=== PATIENT | female | born 1995 | race Caucasian/White ===

== ENCOUNTER → 2022-02-12 12:48 | Outpatient (CLI) | payer OTHER, SELFPAY ==
[2022-02-12 13:26] LABS: COVID19 -Nasal RAPID Negative (Negative)
== END ==
PROVIDERS: PCP Family Medicine Sports Medicine; Referring Provider Podiatrist; Visit Provider Podiatrist
DX: Z20.822 Contact with and (suspected) exposure to COVID-19 (principal)
CPT/HCPCS: 87635; C9803

== ENCOUNTER 2022-02-14 09:46 | Day surgery (SDC) | payer OTHER, SELFPAY ==
[2022-02-13 07:23] VITALS: BMI 45.1
[2022-02-14] VITALS (9 sets, daily range): BP systolic 114–136; BP diastolic 68–78; PULSE 76–94; RESP 12–18; TEMP 36.6–37.5; O2SAT 94–99; BMI 45.1
--- NOTE | 2022-02-14 11:00 | PM.PREOP ---
Pre-operative Note COVID-19 COVID-19 status: Negative Result date/Date tested (Pos, Neg/Pending): 02/12/22 Interval Note History & Physical reviewed/Exam performed by Physician: Yes Changes to H&P: No
[2022-02-14] MEDS: CEFAZOLIN 2 GM/100 ML PREMIX 100 ML IV (11:15)
--- NOTE | 2022-02-14 11:39 | SUR.OPER ---
Supine on padded OR bed, head on pillow, arms secured on padded arm boards at <90 degrees abduction, legs uncrossed, safety belt at thigh, tape over blanket over lower right leg
[2022-02-14] MEDS: BUPIVACAINE 0.5% W/ EPI (PF) 30 ML VIAL INJ (11:44)
--- NOTE | 2022-02-14 15:17 | PM.OP.1 ---
Operative Date/Time/Diagnoses Date of procedure: 02/14/22 Time of procedure: 12:00 Pre-op diagnosis: Left foot hallux abductovalgus with bunion Post-op diagnosis: same Procedure & Clinicians Procedure: Left bunionectomy with distal metatarsal osteotomy and hallux phalangeal osteotomy Same procedure as scheduled: Yes Indications: 26-year-old female with painful bunion on the left foot. Conservative measures have failed to alleviate her pain and she wished to have surgical intervention at this time. Spoke with the risks, potential complications, alternatives, and expected outcomes. Consent was signed, no contraindications to the procedure at this time. Surgeon: Zandra Foley Click Yes if Unassisted: Yes Anesthesia Type: General Operative Notes Closure Type: primary Specimen(s): none sent Prosthetic devices, grafts, tissues, transplants, or devices: [place] 2.0 cannulated screws (2), and JAWS Nitinol alex (2) Estimated Blood Loss (mL): 30 Blood products transfused: none Tourniquet time (min): 79 Procedure in detail: The patient was brought to the operating room and placed on the operating table in the supine position. Tourniquet was placed about the left thigh. Well padded, appropriately aligned. After induction of general anesthesia the left foot and ankle were prepped and draped in the usual aseptic manner. The tourniquet was inflated to 250 mmHg. Incision was made over the 1st metatarsophalangeal joint. The incision was deepened through subcutaneous tissues being careful to identify and retract all vital neurovascular structures. All bleeders were cauterized and ligated as necessary. A medial capsulotomy was performed to the 1st MTPJ exposing the enlarged medial eminence. Through the same incision on the lateral aspect of the 1st interspace a lateral release was performed to mobilize the lateral components of sesamoid apparatus and great toe joint. The decision was made to take the tourniquet down, once it had rested, re-exsanguination of lower limb was performed and the tourniquet was reinflated to 275 mm of mercury. The saw was used to resect the medial eminence. A saw was used to create a chevron-type osteotomy medial to lateral across the first metatarsal head/neck. The head was shifted laterally and respositioned to reduce the intermetatarsal angle. Temporary fixation consisting of the guidewire for the cannulated screw was used. Using standard AO technique, 2.0 cortical screws were placed across the osteotomy. Temporary fixation was then removed. This was reviewed on C-arm showing good placement and closure of the osteotomy. A saw was used to resect the medial first metatarsal shaft redundant overhang. A rasp was used to reduce the sharp edges of the bone. The area was irrigated with copious amounts normal sterile saline. Due to the continued drift of the hallux, decision was made to perform a phalangeal osteotomy hallux. Dissection was carried down and reflecting the extensor away from the proximal phalanx centrally, a saw was used to remove a triangular portion of bone with the apex medially. This was gently closed down to allow for straightening and justification of the great toe. The area was irrigated with copious amounts normal sterile saline. Using standard technique a set of 2 bone alex were used, this was placed dorsal laterally and dorsal medially and under good tension. This closed down the osteotomy with good strength and coaptation. The great toe was put through range of motion and no crepitus was noted. Upon loading the foot alignment was good of the great toe. The great toe was placed in linear alignment and the medial 1st MTP capsule closed with Vicryl. The tourniquet was deflated and a prompt hyperemic response was seen to the foot. Deep and subcutaneous closure was closed performed with Vicryl and Nylon suture to the skin. The foot was dressed with a lightly compressive sterile dressing and splint in alignment. Patient was then placed in a postoperative boot and transferred to PACU with vital signs stable. Complications: none Post-operative Condition: stable Disposition: PACU Plan for aftercare: Following a period of postoperative monitoring, the patient will be discharged to home on written and oral postoperative instructions including keeping the dressing dry and intact, no weight to the surgical foot, icing and elevating the foot when seated home. DVT prevention techniques have been reviewed. For the 1st postoperative visit the dressing will be changed and close to the 4th postoperative week we will likely have x-rays taken.
== END 2022-02-14 14:05 | disposition home or self-care (01) ==
PROVIDERS: PCP Family Medicine Sports Medicine; Referring Provider Podiatrist; Visit Provider Podiatrist
PROC: 0QBP0ZZ Excision of Left Metatarsal, Open Approach (ICD-10-PCS; CPT 28292; principal; 2022-02-14 11:15)
DX: M20.12 Hallux valgus (acquired), left foot (principal)
CPT/HCPCS: 28299; 81025; J0690; J1100; J1885; J2250; J2405; J2704; J3010